=== PATIENT | female | born 1970 | race Caucasian/White ===

== ENCOUNTER 2021-04-03 07:39 | Day surgery (SDC) | payer OTHER, SELFPAY ==
[2021-03-30 09:04] LABS: BILIRUBIN,URINE NEGATIVE (NEGATIVE); BLOOD, URINE 3+ (NEGATIVE); CLARITY/URINE TURBID (CLEAR); COLOR,URINE RED (YELLOW); GLUCOSE,URINE NEGATIVE (NEGATIVE); KETONES,URINE NEGATIVE (NEGATIVE); LEUKOCYTE ESTERASE ,URINE 1+ (NEGATIVE); NITRITE, URINE NEGATIVE (NEGATIVE); PROTEIN URINE 1+ (NEGATIVE); UROBILINOGEN,URINE 0.2 (0.2-1.0)
[2021-03-30 09:32] LABS: BACTERIA,URINE MODERATE /HPF (None Seen); RBC,URINE >100 /HPF (0-3)
[2021-03-30 09:33] LABS: ALBUMIN 3.9 g/dL (3.4-4.8); CALCIUM 8.8 mg/dL (8.4-11.0); CREATININE 0.95 mg/dL (0.55-1.30); POTASSIUM 4.2 mmol/L (3.5-5.1); TOTAL BILIRUBIN 0.3 mg/dL (0.0-1.0)
[2021-03-30 09:34] LABS: MUCUS,URINE 1+ /LPF (None Seen)
[2021-03-30 09:38] LABS: INR 0.9 (0.8-1.2); PROTHROMBIN TIME 9.8 SECS (9.5-12.5)
[2021-03-30 09:45] LABS: BASOPHILS # (AUTO) 0.1 K/uL (0.0-0.2); EOSINOPHILS # (AUTO) 0.1 K/uL (0.0-0.4); EOSINOPHILS % (AUTO) 1.9 % (0.0-4.0); HEMATOCRIT 39.7 % (36-48); HEMOGLOBIN 13.5 g/dL (12.0-16.0); LYMPHOCYTES # (AUTO) 2.2 K/uL (1.0-5.5); LYMPHOCYTES % (AUTO) 41.7 % (20.5-51.5); MEAN CORPUSCULAR HEMOGLOBIN 30 pg (27-31); MEAN CORPUSCULAR HGB CONC 34 % (32-36); MEAN CORPUSCULAR VOLUME 87 fL (79.0-98.0); MONOCYTES # (AUTO) 0.4 K/uL (0.0-1.0); MONOCYTES % (AUTO) 7.7 % (1.7-9.3); NEUTROPHILS # (AUTO) 2.5 K/uL (1.8-7.7); NEUTROPHILS % (AUTO) 47.7 % (40.0-70.0); PLATELET COUNT (AUTO) 354 K/uL (130-430); RED BLOOD CELL COUNT(AUTO) 4.58 MIL/uL (4.2-6.2); RED CELL DISTRIBUTION WIDTH 14.1 % (9.0-15.0); WHITE BLOOD COUNT (AUTO) 5.3 K/uL (4.8-10.8)
[~2021-04-03] VITALS: Ht 172.7 cm; Wt 88.5 kg
[~2021-04-03 07:39] MED LIST: CEFAZOLIN 2 GM IVPB PREMIX 50 ML IV ONE; D5LR 1,000 ML IV SCH
[2021-04-03] MEDS ORDERED: CEFAZOLIN 2 GM IVPB PREMIX 50 ML IV ONE (08:45)
[2021-04-03 09:15] LABS: HCG,QUAL RESULT NEGATIVE (NEGATIVE)
[2021-04-03] MEDS ORDERED: HYDROmorphone 2 MG/ML VIAL IVP PRN ×2 (10:45)
[2021-04-03] MEDS ORDERED: MEPERIDINE HCL/PF 25 MG/ML DISP.SYRIN IVP PRN (10:45)
[2021-04-03] MEDS ORDERED: LR 1,000 ML IV SCH (10:45)
[2021-04-03] MEDS ORDERED: HYDROmorphone 1 MG/ML INJ. CARTRIDGE IVP PRN (10:45)
[2021-04-03] MEDS ORDERED: ONDANSETRON HCL 4 MG/2 ML VIAL IVP PRN (11:15)
[2021-04-03] MEDS ORDERED: HYDROcodone/ACETAMIN 5-325 MG TAB (NORCO/ VICODIN) PO PRN ×2 (11:15)
[2021-04-03 12:43] VITALS: BP_SYST 134
== END 2021-04-03 13:00 | disposition home or self-care (01) ==
LOC: SDS 07:39 → SMU 07:40 → SDS 13:00
PROVIDERS: ATTEND Obstetrics & Gynecology Gynecology
DX: N92.1 Excessive and frequent menstruation with irregular cycle (principal); R93.89 Abnormal findings on diagnostic imaging of other specified body structures; K21.9 Gastro-esophageal reflux disease without esophagitis; Z79.01 Long term (current) use of anticoagulants; Z20.822 Contact with and (suspected) exposure to COVID-19; Z79.899 Other long term (current) drug therapy
CPT/HCPCS: 36415 ×2; 58558; 71046; 80053; 81000; 84703 ×2; 85025; 85610; 85730; 86886 ×2; 86900 ×2; 86901 ×2; 87086; 88305; 93005; C1819; J0690; U0003

== ENCOUNTER 2022-06-14 13:50 | Inpatient (IN) | payer OTHER ==
[~2022-06-14] VITALS: Ht 170.2 cm; Wt 80.8 kg
[2022-06-14] VITALS (7 sets, daily range): BP systolic 97–135
--- NOTE | 2022-06-14 13:54 | NUR ---
First contact. pt placed on monitor. at bedside.
--- NOTE | 2022-06-14 14:04 | NUR ---
First contact. Pt complains of intermittent chest pain with occasional nausea. at bedside at this time.
[2022-06-14 15:01] LABS: BASOPHILS # (AUTO) 0.1 K/uL (0.0-0.2); BASOPHILS % (AUTO) 1.6 % (0.0-2.0); EOSINOPHILS % (AUTO) 0.6 % (0.0-4.0); HEMATOCRIT 38.2 % (36-48); HEMOGLOBIN 13.2 g/dL (12.0-16.0); LYMPHOCYTES # (AUTO) 1.4 K/uL (1.0-5.5); LYMPHOCYTES % (AUTO) 19.8 % (20.5-51.5); MEAN CORPUSCULAR HEMOGLOBIN 29 pg (27-31); MEAN CORPUSCULAR HGB CONC 35 % (32-36); MEAN CORPUSCULAR VOLUME 84 fL (79.0-98.0); MONOCYTES # (AUTO) 0.4 K/uL (0.0-1.0); MONOCYTES % (AUTO) 5.6 % (1.7-9.3); NEUTROPHILS # (AUTO) 5.1 K/uL (1.8-7.7); NEUTROPHILS % (AUTO) 72.4 % (40.0-70.0); PLATELET COUNT (AUTO) 336 K/uL (130-430); RED BLOOD CELL COUNT(AUTO) 4.55 MIL/uL (4.2-6.2); RED CELL DISTRIBUTION WIDTH 14.6 % (9.0-15.0); WHITE BLOOD COUNT (AUTO) 7.1 K/uL (4.8-10.8)
[2022-06-14 15:04] LABS: ANION GAP 8 (5-15); CALCIUM 8.3 mg/dL (8.4-11.0); CHLORIDE 103 mmol/L (98-107); CREATININE 0.99 mg/dL (0.55-1.30); GLUCOSE 119 mg/dL (70-99); POTASSIUM 3.8 mmol/L (3.5-5.1); UREA NITROGEN, BLOOD 13 mg/dL (8-21)
[2022-06-14 15:06] LABS: GFR AFRICAN AMERICAN 76 mL/min (>90)
[2022-06-14 15:08] LABS: ALANINE AMINOTRANSFERASE 21 U/L (12-78); ALBUMIN 3.7 g/dL (3.4-4.8); ASPARTATE AMINOTRANSFERASE 15 U/L (10-37); TOTAL BILIRUBIN 0.5 mg/dL (0.0-1.0)
[2022-06-14] MEDS ORDERED: LIDOCAINE PATCH 5% 1 EA TP ONE (16:30)
[2022-06-14] MEDS ORDERED: HEPARIN SODIUM,PORCINE 5,000 UNITS/ML VIAL IVP ONE (16:45)
[2022-06-14] MEDS ORDERED: ASPIRIN 325 MG TABLET PO ONE (16:45)
[2022-06-14] MEDS ORDERED: HEPARIN 25,000 UNITS/D5W 250ML 250 ML IV ONE (17:00)
[2022-06-14] MEDS ORDERED: NITROGLYCERIN 0.4 MG TAB.SUBL SL ONE (17:15)
--- NOTE | 2022-06-14 17:15 | NUR ---
Spoke with lab regarding the need for ptt pt results. Notified that results will be put in computer.
--- NOTE | 2022-06-14 18:00 | NUR ---
Admit bed requested Patient will be admitted to care of Dr. Sierra DUMAS. Admitted to ICU unit. Diagnosis END STEMI Inpatient (Yes or No) Y Observation (Yes or No) N Orientation concerns or request close to nursing station (Yes or No) N Covid Status NEG On vent or bipap N Isolation requirements N Needs a sitter N From Home (Yes or if No enter name of facility) Y Requires Dialysis (Yes or No) N Med Rec Completed (Yes of No) Y
--- NOTE | 2022-06-14 18:15 | NUR ---
Patient will be admitted to care of Dr. Durga Moralez. Admitted to ICU unit. Will go to room icu bed 2. Belongings list completed. Complete and up to date summary report printed. SBAR and bedside report given to PAULINA Brown with opportunity to ask questions. Endorsed the start of Heparin gtt for icu to start. Delay in PT,Ptt,Inr results from lab reason for delay.
--- NOTE | 2022-06-14 18:28 | NUR ---
Admission to ICU. Pt AOx4, states no pain or distress at this time, on room air. Pt ambulate to bed with steady gait. Per RN report, pt received 1 dose of nitroglycerin SL at 1825. IV 20G noted to right AC, no infiltration noted. Awaiting pharmacist heparin dose rate calculations.
[2022-06-14] MEDS ORDERED: HEPARIN 25,000 UNITS/D5W 250ML 250 ML IV PRN (18:45)
--- NOTE | 2022-06-14 18:50 | NUR ---
Called Dr. Kirt Nuñez with a consult, spoke with Chrystal from the exchange
[2022-06-14] MEDS ORDERED: PRO40 PO (18:58)
[2022-06-14] MEDS ORDERED: VENL37.55 PO (18:58)
--- NOTE | 2022-06-14 18:58 | NUR ---
Medication reconciliation done as provided by patient.
[2022-06-14] MEDS ORDERED: HEPARIN SODIUM,PORCINE 3000 UNITS/0.6 ML BOLUS IVP PRN (19:00)
[2022-06-14] MEDS ORDERED: HEPARIN SODIUM,PORCINE 2000 UNITS/0.4 ML BOLUS IVP PRN (19:00)
--- NOTE | 2022-06-14 20:00 | NUR ---
Dr Moralez and this nurse at bedside. Patient was informed about cardiac catheterization and risks involved during and after the procedure. Patient verbalized understanding.
[2022-06-14] MEDS ORDERED: METOPROLOL SUCCINATE 25 MG TAB.SR.24H (TOPROL XL) PO ONE (20:35)
[2022-06-14] MEDS ORDERED: ASPIRIN 81 MG TABLET(ECOTRIN) PO ONE (20:35)
[2022-06-14] MEDS ORDERED: ATORVASTATIN 20 MG TABLET PO SCH (21:00)
[2022-06-14] MEDS ORDERED: HYDROcodone/ACETAMIN 10-325 MG TAB PO PRN (21:30)
[2022-06-14] MEDS ORDERED: LORazepam 2 MG/ML VIAL IVP PRN (21:30)
[2022-06-14] MEDS ORDERED: HYDROcodone/ACETAMIN 5-325 MG TAB (NORCO/ VICODIN) PO PRN (21:30)
[2022-06-14] MEDS ORDERED: ONDANSETRON HCL 4 MG/2 ML VIAL IVP PRN (21:30)
[2022-06-14] MEDS ORDERED: ACETAMINOPHEN 325 MG TABLET PO PRN (21:30)
[2022-06-14] MEDS ORDERED: NALOXONE HCL 0.4 MG/ML AMP (NARCAN) IVP PRN ×2 (21:30)
[2022-06-14] MEDS ORDERED: NORMAL SALINE 5 ML DISP.SYRIN IVF SCH (22:00)
--- NOTE | 2022-06-14 22:00 | NUR ---
Per Dr Moralez, Discontinue Heparin previous to transfer to [facility] in am. Patient to remain without heparin drip until new orders.
--- NOTE | 2022-06-14 22:55 | NUR ---
Report from lab to Jo Ann Camilo RN charge from [facility]rel[facility] Wilhelm. Troponin level 2561. Dr Kirt gregory.
--- NOTE | 2022-06-14 23:00 | NUR ---
Reported troponin level [address] Joaquin Moralez. Orders received to keep PTT level between 50-70 and to make sure Beta Heidy was given. will continue to monitor.
[2022-06-14] MEDS: NORMAL SALINE 5 ML DISP.SYRIN IVF SCH (23:12)
[2022-06-15] VITALS (11 sets, daily range): BP systolic 97–150
[2022-06-15 05:00] LABS: CALCIUM 8.7 mg/dL (8.4-11.0); CREATININE 0.85 mg/dL (0.55-1.30); PHOSPHORUS 3.2 mg/dL (2.7-4.5); POTASSIUM 4.1 mmol/L (3.5-5.1)
--- NOTE | 2022-06-15 05:20 | NUR ---
troponin level 1503; trending down as lab reported. Patient continues in heparin drip as per pharmacy protocol infusing at 1200 u/h.
[2022-06-15] MEDS: NORMAL SALINE 5 ML DISP.SYRIN IVF SCH (05:59)
--- NOTE | 2022-06-15 06:00 | NUR ---
TRANSFER INFORMATION Pt has transportation ([facility] ) arranged @ 0900 pickup time to [facility]. [facility] decorating supervisor Jo Ann give Room 209B in [place]. Pt's procedure time is for 1030 am 06/15/2022.
[2022-06-15 06:29] LABS: BASOPHILS # (AUTO) 0.1 K/uL (0.0-0.2); BASOPHILS % (AUTO) 0.7 % (0.0-2.0); EOSINOPHILS # (AUTO) 0.1 K/uL (0.0-0.4); EOSINOPHILS % (AUTO) 1.1 % (0.0-4.0); HEMATOCRIT 38.9 % (36-48); HEMOGLOBIN 13.3 g/dL (12.0-16.0); LYMPHOCYTES # (AUTO) 2.6 K/uL (1.0-5.5); LYMPHOCYTES % (AUTO) 29.9 % (20.5-51.5); MEAN CORPUSCULAR HEMOGLOBIN 29 pg (27-31); MEAN CORPUSCULAR HGB CONC 34 % (32-36); MEAN CORPUSCULAR VOLUME 85 fL (79.0-98.0); MONOCYTES # (AUTO) 0.7 K/uL (0.0-1.0); MONOCYTES % (AUTO) 7.6 % (1.7-9.3); NEUTROPHILS # (AUTO) 5.3 K/uL (1.8-7.7); NEUTROPHILS % (AUTO) 60.7 % (40.0-70.0); PLATELET COUNT (AUTO) 338 K/uL (130-430); RED BLOOD CELL COUNT(AUTO) 4.59 MIL/uL (4.2-6.2); RED CELL DISTRIBUTION WIDTH 14.6 % (9.0-15.0); WHITE BLOOD COUNT (AUTO) 8.8 K/uL (4.8-10.8)
[2022-06-15] MEDS ORDERED: PANTOPRAZOLE SODIUM 40 MG TAB PO SCH (09:00)
[2022-06-15] MEDS ORDERED: ASPIRIN 81 MG TABLET(ECOTRIN) PO SCH (09:00)
[2022-06-15] MEDS ORDERED: METOPROLOL SUCCINATE 25 MG TAB.SR.24H (TOPROL XL) PO SCH (09:00)
[2022-06-15] MEDS ORDERED: Effexor XR 37.5 MG PO SCH (09:00)
--- NOTE | 2022-06-15 09:00 | NUR ---
UPDATE ON TRANSFER INFORMED PT AND HER MOTHER ON THE DELAY OF TRANSPORTING HER TO [facility]. AWARE.
--- NOTE | 2022-06-15 11:55 | NUR ---
Ambulance crew here to transport pt to [facility] medical laboratory technologist. Pt upset over 3 hour delay in transportation. Pt is crying. Dr. Joaquin Moralez in to see pt and spoke to transport operations inspector and pt. Pt will be medicated with Ativan IV for anxiety by bedside RN. Dr. Moralez aware of BP 150/108 prior to ativan.
--- NOTE | 2022-06-15 12:00 | NUR ---
AMBULANCE TRANSPORT ARRIVED AT THIS HOUR.
--- NOTE | 2022-06-15 12:13 | NUR ---
[facility] HERE, WITH ACLS NURSE. REPORT GIVEN. IV HEPARIN DRIP OFF AT 12OO. MEDICATED PT WITH ATIVAN 1 MG IVP, FOR HIGH ANXIETY. DR Joaquin DUMAS AWARE. HE WENT TO SPEAK TO THE PATIENT AND HER FAMILY.
--- NOTE | 2022-06-15 12:23 | NUR ---
Dr. Moralez back in to see pt as bilingual branch manager is hesitant to take pt with a BP of 152/92. SR on monitor. Informed bilingual branch manager that the [facility] [facility] dealer said to transport the pt. Pts at bedside.
--- NOTE | 2022-06-15 12:25 | NUR ---
DISCHARGE PT OFF THE UNIT.
== END 2022-06-15 13:00 | disposition short-term general hospital (02) | DRG 282 ==
LOC: SED 13:50 → SIC 17:59
PROVIDERS: ADMIT Preventive Medicine Preventive Medicine/Occupational Environmental Medicine; ATTEND Preventive Medicine Preventive Medicine/Occupational Environmental Medicine
DX: I21.4 Non-ST elevation (NSTEMI) myocardial infarction (principal); K21.9 Gastro-esophageal reflux disease without esophagitis; E78.5 Hyperlipidemia, unspecified; F41.9 Anxiety disorder, unspecified; F32.A Depression, unspecified; E83.51 Hypocalcemia; I20.0 Unstable angina; Z20.822 Contact with and (suspected) exposure to COVID-19
CPT/HCPCS: 36415; 71045; 80048; 80053; 83735; 83880; 84100; 84484; 85025; 85610-TC; 85730-TC; 93005; 93306; 96374; 99291; J1644; J2060